=== PATIENT | female | born 1975 | race Caucasian/White ===

== ENCOUNTER 2017-06-07 18:28 | Emergency (ER) | payer BC ==
[2017-06-07 18:36] VITALS: BP 152/86
[2017-06-07] MEDS ORDERED: Lidocaine 1% MPF* 2 ML VIAL INJ ONE (18:43)
[2017-06-07] MEDS ORDERED: Tetan/Diph/Pertus SYR(Tdap)* 0.5 ML SYR(BOOSTRIX) use SYR IM ONE (18:52)
[2017-06-07] MEDS ORDERED: Cephalexin CAP* 500 MG PO ONE ×3 (19:09)
--- NOTE | 2017-06-07 19:16 | UC ---
Cecily Crawford Alfonso, scribed for Joshua Mitchell MD on 06/07/17 at 1900 . Laceration HPI - HPI Summary HPI Summary: This patient is a 41 year old F presenting to [facility] with a chief complaint of a laceration at the dorsal aspect of her right hand which occurred earlier today. She states the knife was dirty. The patient rates the burning and throbbing pain 2/10 in severity. Symptoms aggravated and alleviated by nothing. She reports she is on prednisone and is immunocompromised. - History Of Current Complaint Chief Complaint: UCLaceration Stated Complaint: HAND LAC Time Seen by Provider: 06/07/17 18:39 Hx Obtained From: Patient Laceration Location: Hand - right dorsal aspect Mechanism Of Injury: Sharp Trauma - dirty knife Onset/Duration: Sudden Onset, Lasting Hours - earlier today, Still Present Pain Intensity: 2 Pain Scale Used: 0-10 Numeric Aggravating Factors: Nothing - Allergies/Home Medications Allergies/Adverse Reactions: Allergies Allergy/AdvReac Type Severity Reaction Status Date / Time Bupropion [From Wellbutrin] Allergy Hives Verified 01/12/15 11:02 Ciprofloxacin Allergy Hives Verified 01/12/15 11:02 Dexamethasone [From Decadron] Allergy Hives Verified 06/07/17 18:36 Erythromycin Allergy tongue and Verified 01/05/15 13:02 throat swelling Levofloxacin [From Levaquin] Allergy Hives Verified 01/12/15 11:02 NSAIDs Allergy dyspnea Verified 01/12/15 11:02 Penicillins [PCN] Allergy Hives Verified 01/12/15 11:02 Sulfa Antibiotics Allergy tongue and Verified 01/12/15 11:02 throat swelling Tomato Allergy Unknown Verified 01/12/15 11:02 Reaction Details Home Medications: Home Medications Fexofenadine (NF) [Marjan (NF)] 60 mg PO 06/07/17 [History] Hydroxychloroquine TAB* [Plaquenil TAB*] 200 mg PO DAILY 06/07/17 [History Confirmed 06/07/17] Mepolizumab [Nucala] 100 mg SC 06/07/17 [History] Mometasone NASAL (NF) [Nasonex (NF)] 50 mcg NA 06/07/17 [History] Mometasone/Formoter 100/5 MDI* [Dulera 100/5 MDI*] 2 puff INH BID 06/07/17 [ History Confirmed 06/07/17] PrednisoLONE TAB (NF) [Millipred TAB (NF)] 20 mg PO 06/07/17 [History] PMH/Surg Hx/FS Hx/Imm Hx Previously Healthy: No - immunocompromised per patient Respiratory History: Asthma - Surgical History Surgical History: Yes Surgery Procedure, Year, and Place: breast reduction 2005. t&A as child. exploratory Laparotomy - Family History Known Family History: Positive: Cardiac Disease, Diabetes, Other - Cancer - Social History Alcohol Use: Weekly Alcohol Amount: 1-2 TIMES PER WEEK Substance Use Type: None Smoking Status (MU): Never Smoked Tobacco Amount Used/How Often: 1/2 -1 PPD X 11 YEARS When Did the Patient Quit Smoking/Using Tobacco: 9-10 YEARS AGO Review of Systems Constitutional: Negative Skin: Other - Positive laceration at dorsal aspect of her right hand. All Other Systems Reviewed And Are Negative: Yes Physical Exam Triage Information Reviewed: Yes Appearance: Well-Appearing, No Pain Distress Vital Signs: Initial Vital Signs Temp 98.1 F 06/07/17 18:34 Pulse 110 06/07/17 18:34 Resp 18 06/07/17 18:34 BP 152/86 06/07/17 18:34 Pulse Ox 100 06/07/17 18:34 Vital Signs Reviewed: Yes Eye Exam: Normal ENT: Positive: Normal ENT inspection Neck: Positive: Supple, Nontender Respiratory: Positive: Other: - CTA, breath sounds present Cardiovascular: Positive: RRR Abdomen Description: Positive: Nontender, Soft Bowel Sounds: Positive: Present Musculoskeletal: Positive: Strength Intact, ROM Intact Neurological: Positive: Alert, Other: Psychological: Positive: Age Appropriate Behavior Skin: Positive: Other - 1 cm linear subcutaneous laceration at dorsal aspect of right hand. Hand, wrist, and finger all have good strength and ROM. No visualized tendon involvement. Laceration Repair - Laceration Repair 1 Description: Linear Laceration Size After Repair: Length (cm) - 1, Depth (mm) - subcutaneous Contamination/FB Removal: Cleaned with hibiclens. Type Injection: Local Anesthesia Used: 1.0% Lido Cleansing Completed Via Routine Prep: Yes Irrigation With Pressure Irrigation Device: Yes Closure Material: Sutures - 3 Suture Of: Skin Suture Type: Prolene - 5-0 Laceration Course/Dx - Course/Dx Course Of Treatment: RX KEFLEX 500MG PO TID X 7 DAYS. - Differential Dx - Laceration/Wound Provider Diagnoses: RIGHT HAND LACERATION. ELEVATED BLOOD PRESSURE. Discharge - Discharge Plan Condition: Stable Disposition: HOME Prescriptions: Cephalexin CAP* [Keflex CAP*] 500 mg PO TID #19 cap Patient Education Materials: Care For Your Stitches (ED), Laceration (ED) Referrals: Erika Hicks PA [Primary Care Provider] - Additional Instructions: FOLLOW UP WITH YOUR DOCTOR IN 8-10 DAYS TO GET THE SUTURES OUT. GET RECHECKED FOR ANY WORSENING OF YOUR CONDITION; PAIN, SIGNS OF INFECTION OR QUESTIONS OR CONCERNS. Follow up with your primary care provider within the week for high blood pressure noted today at 152/86. The documentation as recorded by the Cecily barros Alfonso accurately reflects the service I personally performed and the decisions made by me, Joshua Mitchell MD.
== END 2017-06-07 19:38 | disposition home or self-care (01) ==
LOC: UCEAST 18:28
DX: S61.411A Laceration without foreign body of right hand, initial encounter (principal); W26.0XXA Contact with knife, initial encounter; Y93.9 Activity, unspecified; Y92.9 Unspecified place or not applicable; Z23 Encounter for immunization; J45.909 Unspecified asthma, uncomplicated; Z88.6 Allergy status to analgesic agent; Z88.1 Allergy status to other antibiotic agents; Z88.0 Allergy status to penicillin; Z88.2 Allergy status to sulfonamides
CPT/HCPCS: 12041; 90471; 90715; 99213; A9270-GY; G0463

== ENCOUNTER 2019-04-08 12:08 | Day surgery (SDC) | payer BC ==
--- NOTE | 2019-04-06 13:13 | HP ---
HISTORY AND PHYSICAL: DATE OF ADMISSION: 04/08/19 She is scheduled for surgery at [facility] for 04/08/19. ATTENDING PHYSICIAN: Dr. Montanez.* (DICTATED BY PAUL CHAVEZ NP) CHIEF COMPLAINT: Hypertrophied anal papilla. HISTORY OF PRESENT ILLNESS: Crystal Merino is a 43-year-old female who was referred by Dr. Taylor regarding a lesion that was found on flex sigmoidoscopy. She was found to have a large hypertrophied anal papilla. Biopsies were taken and this was benign. She now comes to the OR for its excision. Dr. Montanez has discussed the nature and course of excising her lesion and has discussed the material risks and relevant alternatives to surgery. These were reviewed with the patient at her preoperative appointment including but not limited to infection, bleeding, poor healing, recurrence. The patient has been given a chance to ask questions and will sign on admission an informed consent for examination under anesthesia of the rectal polyps and possible excision. PAST MEDICAL HISTORY: Migraines, allergies, history of polyps, asthma, irritable bowel and gastrointestinal symptoms, muscle aches, joint swelling. She has mild lupus and also anti-phospholipid antibody syndrome, also anxiety and depression, John's. PAST SURGICAL HISTORY: Abdominal hysterectomy, breast reduction, and ORIF of the right ankle. MEDICATIONS: 1. Marjan Allergy 180 mg daily. 2. Breo Ellipta 200/25 mcg inhaler. 3. Clonazepam 0.5 mg. 4. Dupixent 300 mg in 2 mL every 2 weeks subcutaneous. 5. Hydroxychloroquine sulfate 200 mg and that is twice daily. 6. Levothyroxine sodium 225 mcg. 7. Montelukast sodium 10 mg p.o. daily. 8. Paxil 30 mg p.o. daily. 9. QNASL 80 mcg ACT spray daily. 10. Spiriva Respimat 1.25 mcg inhaler daily. 11. Ventolin HFA 108 (90 base) mcg, use as needed. ALLERGIES: DECADRON, ERYTHROMYCIN, IMITREX, LEVAQUIN, MRI CONTRAST DYE, NSAIDS , PENICILLIN, SULFA, ANTIBIOTICS, tomatoes, and WELLBUTRIN. FAMILY HISTORY: Father: Hypertension, prostate CA, and squamous cell carcinoma. Mother: Thyroid disease, John's, cutaneous T-cell lymphoma. 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 She does have a history of tobacco use and is not currently a smoker and she does have social alcohol use. REVIEW OF SYSTEMS: The patient denies problems with anesthesia. She does have bleeding disorder related to the anti-phospholipid antibody syndrome. PHYSICAL EXAMINATION GENERAL: Crystal Merino is a 43-year-old female, well developed, well nourished, in no acute distress. VITAL SIGNS: Height 64.5 inches, weight 209, blood pressure 115/77, pulse is 86 , respirations 18. HEENT: Within normal limits. Teeth were in good repair. CHEST: Lungs clear. HEART: S1, S2. Regular rate and rhythm. No extra heart sounds, murmurs, clicks, or rubs. ABDOMEN: Soft and nontender. Positive bowel sounds. Positive tympany. EXTREMITIES: +2 symmetrical radial pulses. NEUROLOGIC: Alert and oriented x3. IMPRESSION: Large hypertrophied rectal lesion. PLAN: Same-day surgery admission to Dr. Montanez's service for examination under anesthesia of rectal polyp and possible excision. PAUL CHAVEZ NP [id number]/[facility] #: [id number] ANGELITO
[~2019-04-08 12:08] MED LIST: Buffered Lidocaine 1% SYRIN* 1 ML/SYRINGE INTRADERM ONE; Famotidine IV* 10 MG/ML 2 ML (20 mg) IV ONE; Lactated Ringers 1000 ML Bag* 1,000 ML IV SCH
[2019-04-08] MEDS ORDERED: Bupivacaine 0.5% W/EPI SDV* 30 ML VIAL INJ ONE (12:09)
[2019-04-08] MEDS ORDERED: Clindamycin 900 MG IVPREMIX(* 900 MG/50 ML SDV IV ONE (12:38)
[2019-04-08] MEDS ORDERED: Famotidine IV* 10 MG/ML 2 ML (20 mg) ONE (12:38)
[2019-04-08] MEDS ORDERED: Buffered Lidocaine 1% SYRIN* 1 ML/SYRINGE INTRADERM ONE (12:38)
[2019-04-08] MEDS ORDERED: Midazolam* 1 MG/ML 5 ML VIAL (5 MG) ONE (13:03)
[2019-04-08] MEDS ORDERED: fentaNYL* 50 MCG/ML 2 ML VIAL (100 MCG VIAL) ONE (13:03)
[2019-04-08] MEDS ORDERED: Lidocaine 1% INJ* 10 MG/ML 30 ML SDV ONE (13:45)
[2019-04-08] MEDS ORDERED: Enoxaparin(*) 40 MG/0.4 ML SYR SUBCUT ONE (14:00)
[2019-04-08] MEDS ORDERED: Scopolamine 1.5 mg* PATCH ONE (14:13)
[2019-04-08] MEDS ORDERED: Ondansetron INJ* 2 MG/ML VIAL ONE (14:43)
[2019-04-08] MEDS ORDERED: DiMENhydriNATE IV* 50 MG/ML VIAL ONE ×2 (14:43→15:17)
[2019-04-08] MEDS ORDERED: Propofol* 10 MG/ML 20 ML BTL ONE (14:43)
[2019-04-08] MEDS ORDERED: Lidocaine 2% PF * 5 ML VIAL ONE (14:43)
[2019-04-08] MEDS ORDERED: Dexamethasone IV* 4 MG/ML 1 ML (4 MG) ONE (14:43)
[2019-04-08] MEDS ORDERED: Succinylcholine* 20 MG/ML 10 ML VIAL ONE (14:43)
[2019-04-08] MEDS ORDERED: DiMENhydriNATE IV* 50 MG/ML VIAL IV PUSH PRN (15:14)
[2019-04-08] MEDS ORDERED: Acetaminophen TAB* 325 MG PO PRN (15:14)
[2019-04-08] MEDS ORDERED: Metoclopramide IV* 5 MG/ML 2 ML VIAL ONE (15:15)
[2019-04-08 15:32] VITALS: BP 150/99
--- NOTE | 2019-04-08 20:08 | OP ---
DATE OF OPERATION: 04/08/19 - [facility] DATE OF : 77 SURGEON: Uche Montanez MD NURSING UNIT CLERK: Barbara Hernadez NP ANESTHESIA: General. PRE-OP DIAGNOSIS: Rectal polyp. POST-OP DIAGNOSIS: Rectal polyp. OPERATIVE PROCEDURE: Excision of rectal polyp after examination under anesthesia. ESTIMATED BLOOD LOSS: None. DESCRIPTION OF PROCEDURE: The patient was taken to the operating room. She underwent general anesthesia by endotracheal tube in a supine position. Subsequently, she was placed in a prone position in a jackknife position. Proper time-out, identification of patient, and site of surgery was done. Under general anesthesia, lidocaine 1% was used to infiltrate in the surrounding area of the perianal area to relax the internal and external sphincters. After this was done, a rectal retractor was introduced and examination was done. The patient had class 2 internal hemorrhoids and had a polyp pedunculated coming from just above the dentate line from the anterior wall prolapsing just outside the anal sphincter. After this was done, we then proceeded to clamp the base of the pedicle of the polyp. The polyp was then transected, sent as a specimen. The remaining opening was closed by suture ligating the base with 4-0 Vicryl suture. After this was done, no bleeding was noted. The entire mucosa was covered. After this was done, the area was irrigated and a Xeroform gauze was placed over the small incision. After this was completed, the patient was then turned back on her back, extubated and taken in good condition to recovery room. [id number]/[facility] #: [id number] MTDD
== END 2019-04-08 16:33 | disposition home or self-care (01) ==
LOC: OR 12:08
PROVIDERS: ATTEND Surgery
DX: K62.1 Rectal polyp (principal); K64.1 Second degree hemorrhoids; E06.3 Autoimmune thyroiditis; D68.61 Antiphospholipid syndrome
CPT/HCPCS: 88304; A9270-GY; J0330; J1100; J1240; J1650; J2250; J2405; J2704; J2765; J3010

== ENCOUNTER 2019-11-09 15:50 | Emergency (ER) | payer BC ==
[2019-11-09] MEDS ORDERED: Albuterol/Ipratropium NEB.SOL* Albuterol 2.5 MG/Ipratropium 0.5 MG 3 ML INH ONE (15:52)
[2019-11-09] MEDS ORDERED: Famotidine IV* 10 MG/ML 2 ML (20 mg) IV SLOW PU ONE (15:52)
[2019-11-09] MEDS ORDERED: EPINEPHRINE 1 MG/ML 1 ML VIAL IM ONE (15:52)
[2019-11-09] MEDS ORDERED: NS 0.9% 1000 ML** 1,000 ML IV ONE (15:52)
[2019-11-09] MEDS ORDERED: methylPREDNISolone 125 MG* 2 ML VIAL IV ONE (15:52)
--- OUTSIDE RECORDS SUMMARY | 2019-11-09 15:56 | XMS REPORT | Continuity of Care Document ---
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 [phone] Problems Active Problems Provider Date Enthesopathy of ankle AND/OR tarsus Landon Baez MD Onset: 11/08/2019 Mononeuropathy of lower limb Landon Baez MD Onset: 11/08/2019 Localized, secondary osteoarthritis of the ankle Landon Baez MD Onset: and/or foot Social History Type Date Description Comments Sex Unknown ETOH Use Occasionally consumes alcohol Tobacco Use Start: Unknown End: Patient is a former smoker Unknown Smoking Status Reviewed: 11/08/19 Patient is a former smoker Exercise Type/Frequency Does not exercise Allergies, Adverse Reactions, Alerts Active Allergies Reaction Severity Comments Date Penicillin hives 07/15/2017 Sulfa tongue swelling 07/15/2017 Welbutrin hives 07/15/2017 Ciprolevaquin hives 07/15/2017 NSAIDs diff. breathing 07/15/2017 Imitrex 07/15/2017 Decadron 07/15/2017 Medications Active Medications SIG Qnty Indications Ordering Date Provider Albuterol Sulfate Unknown Medical Marijuana Unknown Tylenol as needed Unknown Breo Ellipta Unknown Eq Nasal Allergy Unknown Symbicort Unknown Methotrexate 4 tbs by mouth Unknown 2.5mg every week Tablets Folic Acid take one Unknown 1mg Tablets capsule/tablet daily by mouth Dhea Unknown Paroxetine HCL once a day Unknown 30mg Tablets Vitamin B12 Unknown Tylenol PM Extra 1-2 tab at Unknown Strength bedtime 500-25mg Tablets Benadryl Allergy 2 caps 1 hour Unknown 25mg prior to Capsules procedure Dulera 2 puff twice a Unknown 100-5mcg/Act day Aerosol Nasonex two sprays each Unknown 50mcg/Act nostril once Suspension daily for 2 weeks. Singulair 1 by mouth every Unknown 10mg Tablets day Vitamin D3 1 by mouth every Unknown 5000Unit day Capsules Levothyroxine Sodium 1 by mouth every 90tabs Unknown day 125mcg Tablets Plaquenil bid Unknown 200mg Tablets Medications Administered in Office Medication SIG Qnty Indications Ordering Provider Date Triamcinolone (Kenalog) Landon Baez MD 11/08/2019 Injection Immunizations Description No Information Available Vital Signs Date Vital Result Comment 11/08/2019 1:14pm Height 64 inches 5'4" Weight 214.00 lb Heart Rate 94 /min BP Systolic 116 mmHg BP Diastolic 86 mmHg Pain Level 2 BMI (Body Mass Index) 36.7 kg/m2 12/06/2018 1:07pm Height 64 inches 5'4" Weight 227.00 lb Heart Rate 88 /min BP Systolic 152 mmHg BP Diastolic 80 mmHg Respiratory Rate 16 /min Body Temperature 98.4 F Pain Level 5 BMI (Body Mass Index) 39.0 kg/m2 Results Description No Information Available Procedures Description No Information Available Medical Devices Description No Information Available Encounters Description No Information Available Assessments Date Code Description Provider 11/08/2019 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, right ankle and Landon Baez MD foot 11/08/2019 G57.91 Unspecified mononeuropathy of right lower limb Landon Baez MD 11/08/2019 M25.771 Osteophyte, right ankle Landon Baez MD Plan of Treatment 11/08/2019 - Landon Baez MD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, right ankle and footNew Xrays:Inj/Aspir, Intermediate Joint/Bursa W/ US, Ordered: Follow up:Follow Up: As [id number] Unspecified mononeuropathy of right lower limbM25.771 Osteophyte, right ankle Functional Status Description No Information Available Mental Status Description No Information Available Referrals Description No Information Available
--- OUTSIDE RECORDS SUMMARY | 2019-11-09 15:56 | XMS REPORT | Continuity of Care Document ---
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
[2019-11-09 16:03] VITALS: BP 129/65
--- NOTE | 2019-11-09 16:30 | UC ---
Allergic Reaction HPI - HPI Summary HPI Summary: 44 yo female presents accompanied by coworker with allergic reaction. Pt is audibly wheezing and in respiratory distress, thus most of the history is provided by her coworker. She tells me that pt has multiple environmental, food , and medication allergies. Pt packs her own lunch due to her multiple allergies. Ate her usual food around 1430. Around 1500 began to feel flushed - took 50mg benadryl po with no relief. Symptoms began to worsen to itchiness, scratchy throat, and significant wheezing and shortness of breath. Epipen was given IM around 4519-7767 and pt has moderate relief for about 15 minutes before her symptoms started worsening again - prompting her visit here. Currently she is unsure what she ate that caused her symptoms. She is unable to talk in complete sentences due to SOB and audible wheezing. States neck and throat feel "huge". 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 Hx From Patient Unobtainable Due To: Other - Resp distress Onset/Duration: Sudden Onset Severity Initially: Mild Severity Currently: Severe Pain Intensity: 0 - Allergies/Home Medications Allergies/Adverse Reactions: Allergies Allergy/AdvReac Type Severity Reaction Status Date / Time aspirin Allergy Severe asthma Verified 04/08/19 12:43 flare up, cannot breathe azithromycin [From Zithromax] Allergy Severe tongue Verified 04/08/19 12:43 swells bupropion [From Wellbutrin] Allergy Severe Hives Verified 04/08/19 12:43 ciprofloxacin [From Cipro] Allergy Severe Hives Verified 04/08/19 12:43 dexamethasone [From Decadron] Allergy Severe bizarre Verified 04/08/19 12:43 facial extreme fast facial flushing erythromycin base Allergy Severe tongue and Verified 04/08/19 12:43 throat swelling levofloxacin [From Levaquin] Allergy Severe Hives Verified 04/08/19 12:43 NSAIDS (Non-Steroidal Allergy Severe Difficulty Verified 04/08/19 12:43 Anti-Inflamma Breathing Penicillins Allergy Severe Hives Verified 04/08/19 12:43 Sulfa (Sulfonamide Allergy Severe Swelling Verified 04/08/19 12:43 Antibiotics) Of Face,Lips,& Throat tomato Allergy Severe diarrhea, Verified 04/08/19 12:43 rash sumatriptan [From Imitrex] AdvReac Severe central Verified 04/08/19 12:43 nervous reaction PMH/Surg Hx/FS Hx/Imm Hx Respiratory History: Asthma Psychological History: Anxiety - Surgical History Surgical History: Yes Surgery Procedure, Year, and Place: tonsils, tubes in ears, hysterectomy, breast reduction, right tib/fib with metal in ankle, exploratory sinus surgery - Family History Known Family History: Positive: Cardiac Disease, Diabetes, Other - Cancer - Social History Occupation: Employed Full-time Lives: With Family Alcohol Use: Weekly Alcohol Amount: 1-2 TIMES PER WEEK Substance Use Type: Marijuana Substance Use Comment - Amount & Last Used: medical Smoking Status (MU): Never Smoked Tobacco Amount Used/How Often: 1/2 -1 PPD X 11 YEARS When Did the Patient Quit Smoking/Using Tobacco: 10-15 years ago Review of Systems All Other Systems Reviewed And Are Negative: No Constitutional: Positive: Negative Skin: Positive: Negative Eyes: Positive: Negative ENT: Positive: Other - Neck and throat swelling Respiratory: Positive: Shortness Of Breath, Cough Cardiovascular: Positive: Negative Gastrointestinal: Positive: Negative Genitourinary: Positive: Negative Motor: Positive: Negative Neurovascular: Positive: Negative Musculoskeletal: Positive: Negative Neurological: Positive: Headache Psychological: Positive: Anxious Physical Exam - Summary Physical Exam Summary: GENERAL: Moderate resp distress. Audible wheezing. Unable to complete sentences due to SOB/wheezing. SKIN: Facial flushing. No noted urticaria or rashes. HEENT: Head: AT/NC Eyes: EOM intact. No periorbital edema. Throat: Mildly enlarged tongue. Airway patent without appreciable edema. NECK: Supple. Appears mildly edematous. CHEST: Moderate to severe wheezing throughout. Tripod breathing with audible wheezing from doorway. Increased resp rate. Short shallow breaths. CV: Tachycardic. NEURO: Alert. PSYCH: Anxious appearing. Tearful. Triage Information Reviewed: Yes Vital Signs: Initial Vital Signs Temp 98.7 F 11/09/19 15:52 Pulse 152 11/09/19 15:52 Resp 22 11/09/19 15:52 BP 129/65 11/09/19 15:52 Pulse Ox 98 11/09/19 15:52 Vital Signs Reviewed: Yes Allergic Reaction Course/Dx - Course Course Of Treatment: Pt exhibiting signs of anaphylaxis. 50mg benadryl po 1500 Epipen IM at 1530 NS, 125mg solumedrol, 40mg pepcid, and duoneb administered ~8944-5744. Epi held due to elevated HR EMS called. ~1605 pt began to have dry heaves and say her throat feels like it is closing - - airway remains unchanged and patent on exam. Crash cart brought into room and pt placed on oxymask 2L, but this made her more anxious and she removed this instantly. O2% remained 97%+. Epi at bedside. Koby arrived ~1615. On arrival of EMS pt had improved lung sounds and significantly less wheezing. Improved rate of breathing and less labored compared to initial presentation. Pt left via EMS in stable condition. Report called to Dr. Prince in the [facility] ED. - Differential Dx/Diagnosis Provider Diagnosis: Anaphylactic reaction Discharge ED - Sign-Out/Discharge Documenting (check all that apply): Patient Departure All imaging exams completed and their final reports reviewed: No Studies - Discharge Plan Condition: Stable Disposition: TRANS HIGHER LVL OF CARE FAC Referrals: Erika Hicks PA [Primary Care Provider] - - Billing Disposition and Condition Condition: STABLE Disposition: Trans Higher Lvl of Care Fac
== END 2019-11-09 16:05 | disposition short-term general hospital (02) ==
LOC: UCEAST 15:50
DX: T78.2XXA Anaphylactic shock, unspecified, initial encounter (principal); J45.909 Unspecified asthma, uncomplicated; F41.9 Anxiety disorder, unspecified; Z88.0 Allergy status to penicillin; Z88.1 Allergy status to other antibiotic agents; Z88.2 Allergy status to sulfonamides; Z88.6 Allergy status to analgesic agent; Z88.8 Allergy status to other drugs, medicaments and biological substances; Z91.018 Allergy to other foods; Z99.81 Dependence on supplemental oxygen
CPT/HCPCS: 96360; 96374; 96376; 99212; A9270-GY; G0463; J2930

== ENCOUNTER 2019-11-09 16:32 | Emergency (ER) | payer BC ==
--- NOTE | 2019-11-09 16:55 | ED ---
Allergic Reaction/Systemic - HPI Summary HPI Summary: The patient is a 44 y/o female arriving by ambulance to [facility] from [facility] with a chief complaint of allergic reaction to unknown substance starting around 1430. She reports that she has an allergy to many medications as well as tomatoes. After eating food that she made herself because of her allergies, she noticed an erythematous rash on the chest and into the face, so she took two Benadryl. She then developed wheezing, cough, and hoarse voice, and an Epipen was administered. She then went to [facility] where Benadryl, Solu-Medrol, Duoneb, and Pepcid were provided. Her symptoms improved following the medications although they are still present rated 2/10 in severity. She has had allergic reactions in the past occasionally without unknown cause, but she does not have an Epipen at home. PMHx: anemia, thyroid disease, asthma, Lupus. Nonsmoker, weekly EtOH, medical marijuana use. Medications reviewed. Allergies noted. - History of Current Complaint Chief Complaint: EDAllergicReaction Time Seen by Provider: 11/09/19 16:39 Hx Obtained From: Patient Hx Last Menstrual Period: 2 weeks ago Onset/Duration: Gradual Onset, Started hours ago - 1430, Still Present Timing: Constant Severity Initially: Moderate Severity Currently: Mild Pain Intensity: 2 Pain Scale Used: 0-10 Numeric Character: Hives Aggravating Factor(s): Nothing Alleviating Factor(s): Antihistamines, Epinephrine, Other - meds at Associated Signs And Symptoms: Positive: Cough Wheezing, Hoarseness, Rash - Allergies/Home Medications Allergies/Adverse Reactions: Allergies Allergy/AdvReac Type Severity Reaction Status Date / Time aspirin Allergy Severe asthma Verified 04/08/19 12:43 flare up, cannot breathe azithromycin [From Zithromax] Allergy Severe tongue Verified 04/08/19 12:43 swells bupropion [From Wellbutrin] Allergy Severe Hives Verified 04/08/19 12:43 ciprofloxacin [From Cipro] Allergy Severe Hives Verified 04/08/19 12:43 dexamethasone [From Decadron] Allergy Severe bizarre Verified 04/08/19 12:43 facial extreme fast facial flushing erythromycin base Allergy Severe tongue and Verified 04/08/19 12:43 throat swelling levofloxacin [From Levaquin] Allergy Severe Hives Verified 04/08/19 12:43 NSAIDS (Non-Steroidal Allergy Severe Difficulty Verified 04/08/19 12:43 Anti-Inflamma Breathing Penicillins Allergy Severe Hives Verified 04/08/19 12:43 Sulfa (Sulfonamide Allergy Severe Swelling Verified 04/08/19 12:43 Antibiotics) Of Face,Lips,& Throat tomato Allergy Severe diarrhea, Verified 04/08/19 12:43 rash sumatriptan [From Imitrex] AdvReac Severe central Verified 04/08/19 12:43 nervous reaction PMH/Surg Hx/FS Hx/Imm Hx Endocrine/Hematology History: Reports: Hx Thyroid Disease - hashimotos, Hx Anemia - anti-phospholipid antibody syndrome Denies: Hx Diabetes Cardiovascular History: Denies: Hx Hypertension, Hx Pacemaker/ICD Respiratory History: Reports: Hx Asthma - ROUTINE AND MEDICATION FOR- mod to severe Denies: Hx Chronic Obstructive Pulmonary Disease (COPD) GI History: Reports: Hx Irritable Bowel, Hx Ulcer - ULCERATIVE COLITIS Musculoskeletal History: Reports: Hx Arthritis Sensory History: Reports: Hx Contacts or Glasses - glasses Denies: Hx Hearing Aid Opthamlomology History: Reports: Hx Contacts or Glasses - glasses Neurological History: Reports: Hx Migraine, Other Neuro Impairments/Disorders - LUPUS- mild Psychiatric History: Reports: Hx Anxiety, Hx Depression Denies: Hx Panic Disorder - Surgical History Surgical History: Yes Surgery Procedure, Year, and Place: tonsils, tubes in ears, hysterectomy, breast reduction, right tib/fib with metal in ankle, exploratory sinus surgery Hx Anesthesia Reactions: Yes - vomiting Infectious Disease History: No Infectious Disease History: Denies: Hx Hepatitis, Hx Human Immunodeficiency Virus (HIV), Traveled Outside the [place] in Last 30 Days - Family History Known Family History: Positive: Cardiac Disease, Diabetes, Other - Cancer - Social History Alcohol Use: Weekly Alcohol Amount: 1-2 TIMES PER WEEK Hx Substance Use: Yes Substance Use Type: Reports: Marijuana Substance Use Comment - Amount & Last Used: medical Hx Tobacco Use: No Smoking Status (MU): Never Smoked Tobacco Amount Used/How Often: 1/2 -1 PPD X 11 YEARS Review of Systems Positive: Other - hoarse voice, itchy throat Positive: Cough, Other - wheezing Positive: Rash - erythematous, urticarial (improved) All Other Systems Reviewed And Are Negative: Yes Physical Exam - Summary Physical Exam Summary: Constitutional: Well-developed, Well-nourished, Alert. (-) Distressed Skin: Warm, Dry, flushed HENT: Normocephalic; Atraumatic; Hoarse voice Eyes: Conjunctiva normal Neck: Musculoskeletal ROM normal neck. (-) JVD, (-) Stridor, (-) Nuchal rigidity Cardio: Tachycardic rate and rhythm, Heart sounds normal; Intact distal pulses; Radial pulses are 2+ and symmetric. (-) Murmur Pulmonary/Chest wall: Effort normal. (-) Respiratory distress, (-) Wheezes, (-) Rales Abd: Soft, (-) tenderness, (-) Distension, (-) Guarding, (-) Rebound Musculoskeletal: (-) Edema Lymph: (-) Cervical adenopathy Neuro: Alert, Oriented x3 Psych: Mood and affect Normal Triage Information Reviewed: Yes Vital Signs On Initial Exam: Initial Vitals Temp Pulse Resp BP Pulse Ox 98.5 F 125 17 128/90 98 11/09/19 16:33 11/09/19 16:33 11/09/19 16:33 11/09/19 16:33 11/09/19 16:33 Vital Signs Reviewed: Yes Procedures - Sedation Patient Received Moderate/Deep Sedation with Procedure: No Diagnostics - Vital Signs Vital Signs Temp Pulse Resp BP Pulse Ox 11/09/19 16:33 98.5 F 125 17 128/90 98 - Laboratory Lab Statement: Any lab studies that have been ordered have been reviewed, and results considered in the medical decision making process. Re-Evaluation - Re-Evaluation First Eval Re-Evaluation Time: 18:35 Comment: We discussed all results and plan for discharge. HR down to 90's. No recurrent allergic reactions. Voice returned to normal. Allergic Reaction Course/Dx - Course Course Of Treatment: 44 y/o F w hx food allergies p/w allergic reaction. PE with mild flushing of the skin, hoarse voice. No oral swelling. - VS notable for tachycardia likely 2/2 epi and albuterol. - given IVF, observed in department until 630 which is 4 hours post epi pen. - given epi pen to go. - Diagnoses Provider Diagnoses: Anaphylactic reaction Discharge ED - Sign-Out/Discharge Documenting (check all that apply): Patient Departure - Patient will be discharged home. - Discharge Plan Condition: Stable Disposition: HOME Prescriptions: EPINEPHrine [Epipen 2-[place]] 0.3 mg IJ ONCE 1 Days #1 auto.injct Referrals: Erika Hicks PA [Primary Care Provider] - Additional Instructions: Carry an EPI-PEN (or similar device) WITH YOU AT ALL TIMES. You should keep one on your person at ALL TIMES. Keep one in your wallet, purse, or pocket, one at home, one at work, and one in your car. If you feel symptoms of another allergic reaction coming on- use the EPI-PEN IMMEDIATELY and then call 911. DO NOT WAIT TO INJECT YOURSELF IF YOU HAVE SYMPTOMS- THE DELAY COULD BE FATAL. IF YOU HAVE ANY DOUBT, it is better to inject yourself rather than wait. If you still have symptoms 5 minutes after giving yourself an EPI-PEN, give yourself a second epi-pen injection. Make sure to check the expiration dates on your epi- pen and refill them BEFORE they . Please follow up with your primary care doctor in the next 2-3 days and return to the emergency department for trouble breathing, trouble swallowing, worsening or concerning symptoms. It was a pleasure taking care of you today. - Billing Disposition and Condition Condition: STABLE Disposition: Home - Attestation Statements Document Initiated by Verito: Yes Documenting Scribe: Vinita Guzman Provider For Whom Verito is Documenting (Include Credential): Dr. Russell Mcmillan MD Scribe Attestation: Vinita Crawford scribed for Dr. Russell Mcmillan MD on 11/09/19 at 1845. Scribe Documentation Reviewed: Yes Provider Attestation: The documentation as recorded by the Vinita barros accurately reflects the service I personally performed and the decisions made by me, Dr. Russell Mcmillan MD Status of Scribgabe Document: Viewed
[2019-11-09] MEDS ORDERED: NS 0.9% 1000 ML** 1,000 ML IV ONE (17:12)
[2019-11-09 18:53] VITALS: BP 122/77
== END 2019-11-09 18:50 | disposition home or self-care (01) ==
LOC: ED 16:32
DX: T78.2XXA Anaphylactic shock, unspecified, initial encounter (principal); R06.2 Wheezing; R21 Rash and other nonspecific skin eruption; E03.9 Hypothyroidism, unspecified
CPT/HCPCS: 96360; 99282